=== PATIENT | female | born 1995 | race Caucasian/White ===

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

== ENCOUNTER 2021-12-31 15:38 | Emergency (ER) | payer OTHER ==
[~2021-12-31] VITALS: Ht 160 cm; Wt 95.7 kg
[2021-12-31 16:15] VITALS: BP 145/88
[2021-12-31 18:05] LABS: BUN 5 mg/dl (7-24); CHLORIDE 107 mmol/L (98-107); POTASSIUM 3.5 mmol/L (3.5-5.1); SODIUM 139 mmol/L (136-145)
== END 2021-12-31 19:35 | disposition home or self-care (01) ==
LOC: ED 15:38
PROVIDERS: Nurse Practitioner Family
DX: U07.1 COVID-19 (principal); Z88.0 Allergy status to penicillin; Z91.018 Allergy to other foods; Z79.899 Other long term (current) drug therapy

== ENCOUNTER 2022-04-14 11:31 | Emergency (ER) | payer OTHER ==
[~2022-04-14] VITALS: Ht 160 cm; Wt 74.8 kg
[2022-04-14 12:35] VITALS: BP 126/86
[2022-04-14 14:20] LABS: BASO % 0.6 % (0.0-1.0); EOS # 0.2 10*3/uL (0.0-0.4); EOS % 3.1 % (1.0-4.0); HEMATOCRIT 43.7 % (37.0-47.0); LYMPH # 1.5 10*3/uL (1.3-4.4); LYMPH % 27.2 % (27.0-41.0); MEAN CELL VOLUME 86.7 fl (81.0-99.0); MEAN CORPUSCULAR HGB CONC 32.3 g/dl (33.0-37.0); MEAN PLATELET VOLUME 9.8 fl (9.6-12.3); MONO # 0.4 10*3/uL (0.1-1.0); MONO % 6.8 % (3.0-9.0); NEUT # 3.4 10*3/uL (2.3-7.9); NEUT % 61.9 % (47.0-73.0); PLATELET COUNT AUTOMATED 321 10*3/uL (130-400); RED BLOOD COUNT 5.04 10*6/uL (4.10-5.10); RED CELL DISTRI WIDTH 13.1 % (0-14.5); WHITE BLOOD COUNT 5.5 10*3/uL (4.8-10.8)
[2022-04-14 14:36] LABS: ALKALINE PHOSPHATASE 117 U/L (46-116); BUN 8 mg/dl (9-23); CHLORIDE 107 mmol/L (98-107); CREATININE 0.58 mg/dL (0.55-1.02); POTASSIUM 3.9 mmol/L (3.4-5.1); SGPT/ALT 21 U/L (10-49); SODIUM 138 mmol/L (136-145)
[2022-04-14] MEDS ORDERED: PREDNISONE20 M1 PO (14:55)
[2022-04-14] MEDS ORDERED: ZITHROMAX250 MG PO (14:55)
[2022-04-14] MEDS ORDERED: PULMICORT FLE180 MCG INH (15:16)
== END 2022-04-14 15:19 | disposition home or self-care (01) ==
LOC: ED 11:31
PROVIDERS: Physician Assistant
DX: J18.9 Pneumonia, unspecified organism (principal); Z88.0 Allergy status to penicillin; Z91.038 Other insect allergy status; Z91.018 Allergy to other foods; Z98.890 Other specified postprocedural states

== ENCOUNTER 2022-07-14 19:41 | Emergency (ER) | payer OTHER ==
[~2022-07-14] VITALS: Ht 160 cm; Wt 75.3 kg
[~2022-07-14 19:41] MED LIST changes: +PULMICORT FLE180 MCG INH
[2022-07-14 19:48] VITALS: BP 144/81
[2022-07-14] MEDS ORDERED: ZITHROMAX250 MG PO (20:09)
[2022-07-14] MEDS ORDERED: PREDNISONE10 MG PO (20:09)
== END 2022-07-14 20:55 | disposition home or self-care (01) ==
LOC: ED 19:41
DX: J45.901 Unspecified asthma with (acute) exacerbation (principal); Z88.0 Allergy status to penicillin; Z91.018 Allergy to other foods; Z91.041 Radiographic dye allergy status; Z98.890 Other specified postprocedural states

== ENCOUNTER 2024-06-10 15:04 | Emergency (ER) | payer SELFPAY ==
[~2024-06-10] VITALS: Wt 90.7 kg
[~2024-06-10 15:04] MED LIST changes: +PREDNISONE10 MG PO
[2024-06-10 15:22] VITALS: BP 136/92
[2024-06-10] MEDS ORDERED: TAMIFLU 75MG CA75 MG PO (16:47)
== END 2024-06-10 16:59 | disposition home or self-care (01) ==
LOC: ED 15:04
DX: J10.1 Influenza due to other identified influenza virus with other respiratory manifestations (principal); Z20.822 Contact with and (suspected) exposure to COVID-19; J45.909 Unspecified asthma, uncomplicated; Z88.0 Allergy status to penicillin; Z91.018 Allergy to other foods; Z91.041 Radiographic dye allergy status